=== PATIENT | female | born 1965 | race Caucasian/White ===

== ENCOUNTER 2018-06-17 17:46 | Emergency (ER) | payer BC ==
[2018-06-17 18:00] VITALS: BP 156/83
--- NOTE | 2018-06-17 18:25 | EDM.PDOC ---
ED HPI GENERAL MEDICAL PROBLEM - General Chief Complaint: Head Injury Stated Complaint: HEAD INJURY Time Seen by Provider: 06/17/18 18:18 Source of Information: Reports: Patient, Family (daughter) History Limitations: Reports: No Limitations - History of Present Illness INITIAL COMMENTS - FREE TEXT/NARRATIVE: 53-year-old female states that her dog became entangled under her feet in her home and she was sitting on a new bar stool. States the legs are very narrow and a barstool tipped over and she fell directly to a linoleum covered with floor. She hit her head very hard on the supple aspect. Dazed but did not lose consciousness. She had mild nausea and has a headache. She also has diffuse cervical neck pain. She's had previous C4-C7 spinous fusion procedure many years ago. Another pain is in her upper lumbar spine. She has contused her elbows and forearm with no evidence of bony injury identified. Onset: Today Onset Date: 06/17/18 Onset Time: 17:00 Duration: Minutes: Location: Reports: Head, Neck, Back Quality: Reports: Ache, Throbbing Severity: Moderate (Large hematoma occipital scalp.) Improves with: Reports: Rest Worsens with: Reports: Movement Context: Reports: Trauma (Fell off a barstool and landed hard on the back of her head injuring her neck and her lower back as well. No loss of consciousness. ). Denies: Activity, Exercise, Lifting, Sick Contact Associated Symptoms: Reports: Headaches, Nausea/Vomiting. 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 ( took 600 mg of Motrin before coming to the ED.) Posterior Head Pain Score (Numeric/FACES): 10 - Related Data Allergies Allergy/AdvReac Type Severity Reaction Status Date / Time No Known Allergies Allergy Verified 06/17/18 18:00 Home Meds: Home Meds oxyCODONE HCl/Acetaminophen [Percocet 5-325 mg Tablet] 1 - 2 each PO Q4H PRN # 12 tablet 06/17/18 [Rx] Past Medical History Neurological History: Reports: Migraines Hematologic History: Reports: Other (See Below) Dermatologic History: Reports: Other (See Below) Other Dermatologic History: acne - Past Surgical History HEENT Surgical History: Reports: Tonsillectomy Female Surgical History: Reports: D&C Neurological Surgical History: Reports: C-Spine Social & Family History - Tobacco Use Smoking Status *Q: Current Every Day Smoker Years of Tobacco use: 30 Packs/Tins Daily: 0.5 - Caffeine Use Caffeine Use: Reports: Coffee - Recreational Drug Use Recreational Drug Use: No - Living Situation & Occupation Living situation: Reports: , with Family Occupation: Employed ED ROS GENERAL - Review of Systems Review Of Systems: See Below Constitutional: Denies: Fever, Chills, Malaise, Weakness, Fatigue, Weight Loss HEENT: Reports: No Symptoms Respiratory: Reports: No Symptoms Cardiovascular: Reports: No Symptoms Endocrine: Reports: No Symptoms GI/Abdominal: Reports: No Symptoms : Reports: No Symptoms Musculoskeletal: Reports: Neck Pain (Acid C4-C7 is), Back Pain (Upper lumbar back pain) Skin: Reports: No Symptoms ( cervical spine fusion) Neurological: Reports: Dizziness, Headache Psychiatric: Reports: No Symptoms ED EXAM, HEAD INJURY - Physical Exam Exam: See Below Exam Limited By: No Limitations General Appearance: Alert, WD/WN, No Apparent Distress Head: Scalp Hematoma, Scalp Tenderness (Patient has a large 6-7 cm circumferential scalp hematoma over the upper occipital scalp that is very tender to touch.) Nexus Criteria: Posterior, Midline Cervical Tenderness (Very tender left lateral spinous processes.). No: Altered Level of Consciousness, Painful Distraction Injuries Eyes: Bilateral Eye: Normal Inspection, PERRL Ears: Normal TMs Throat/Mouth: Other (No dental or tongue injury.) Neck: Muscle Spasm, Paraspinous Muscle Tender (Left side), Tender Lateral (Left paraspinal muscle spasm), Other (Well-healed midline ) Respiratory: No Respiratory Distress, Lungs Clear, Normal Breath Sounds, No Accessory Muscle Use, Chest Non-Tender, Other (No pain on palpation of his ribs. ) Cardiovascular: Normal Peripheral Pulses, Regular Rate, Rhythm, No Edema, No Gallop, No Murmur, No Rub Back Exam: Other (Tenderness to palpation over the spinous processes of L1-2 and 3 and a little bit to the left lower back. There is mild paraspinal muscle spasm in this area as well. No abrasions or contusions are identified on the examination of thoracic and lumbar spine.) Extremities: Other (She has contused both forearms and particularly her left elbow. She has some pain with pronation supination. His contused her right ) Neurologic: spinner open end II-XII nml As Tested (forearm but this appears to be muscular and extensor surface with full pronation supination and no evidence of bony injury.), No Motor/Sensory Deficits, Alert, Normal Mood/Affect, Oriented x 3 Skin: Normal Color, Warm/Dry - Stuart Coma Score Best Eye Response (Alannah): (4) Open Spontaneously Best Verbal Response (Alannah): (5) Oriented Best Motor Response (Alannah): (6) Obeys Commands Stuart Total: 15 Course - Vital Signs Last Recorded V/S: Last Vital Signs Temp 36.3 C 06/17/18 17:57 Pulse 78 06/17/18 17:57 Resp 16 06/17/18 17:57 BP 156/83 H 06/17/18 17:57 Pulse Ox 97 06/17/18 17:57 - Orders/Labs/Meds Orders: Active Orders 24 hr Category Date Time Status Cervical Spine wo Cont [CT] Stat Exams 06/17/18 18:20 Taken Head wo Cont [CT] Stat Exams 06/17/18 18:19 Taken Lumbar Spine wo Cont [CT] Stat Exams 06/17/18 18:21 Taken - Radiology Interpretation Free Text/Narrative:: 52-year-old female attends the ED after falling off a barstool at her home. 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 She states she tipped over backwards and landed hard on the floor injuring her supple scalp in her neck. She also finds that she has pain in her lower back as well. She's had previous cervical spine fusion from C4-C7 5 years ago. She has a large hematoma to the left occipital scalp. Injury occurred about an hour prior to coming to the ED. Plan CT head CT cervical spine CT lumbar spine. She also injured both forearms from hitting the floor on the right side appears to be more muscular contusion to the extensor surface of the mid forearm. On the left she has more pain on the elbow. And in the wrist. Therefore an x-ray of her left forearm to be done. - Re-Assessments/Exams Free Text/Narrative Re-Assessment/Exam: 06/17/18 19:OO; CT of the head reveals no intracranial bleeding or mass effect. There is no skull fracture. CT cervical spine reveals that she has a fusion from C4-C7 with the hardware in good position and no signs of FRACTURES in the underlying bones. CT of the lumbar spine reveals no fractures. 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 X-ray of the left forearm reveals no bony injuries. Soft tissue contusion to the muscle has occurred. Patient be discharged to home with rest ice pack to the head and neck. Percocet tabs 5/325 one or 2 every 4-6 hours needed for pain relief 12 tablets provided. She will use Motrin 600 mg every 6 hours after this for pain relief. He is to expect much more increased and stiffness and soreness in the lumbar Departure - Departure Time of Disposition: 19:13 Disposition: Home, Self-Care 01 Condition: Fair Clinical Impression: Closed head injury without concussion Qualifiers: Encounter type: initial encounter Qualified Code(s): S09.90XA - Unspecified injury of head, initial encounter Sprain of cervical neck Qualifiers: Encounter type: initial encounter Qualified Code(s): S13.9XXA - Sprain of joints and ligaments of unspecified parts of neck, initial encounter Contusion of lower back Qualifiers: Encounter type: initial encounter Qualified Code(s): S30.0XXA - Contusion of lower back and pelvis, initial encounter Contusion of occipital region of scalp Qualifiers: Encounter type: initial encounter Qualified Code(s): S00.03XA - Contusion of scalp, initial encounter - Discharge Information *PRESCRIPTION DRUG MONITORING PROGRAM REVIEWED*: Not Applicable *COPY OF PRESCRIPTION DRUG MONITORING REPORT IN PATIENT ROSA: Not Applicable Prescriptions: oxyCODONE HCl/Acetaminophen [Percocet 5-325 mg Tablet] 1 - 2 each PO Q4H PRN # 12 tablet PRN Reason: pain relief. Referrals: PCP,None [Primary Care Provider] - Forms: ED Department Discharge Additional Instructions: Evaluation in the emergency room today in regards to fall from bar stool at home with blunt force trauma to the occipital lower back of your head. His resulted in hematoma which is a collection of blood between the skin and the 5 layers of the scalp. CT scan of the brain reveals no intracranial bleeding mass effect or skull fracture. You also resulted in a cervical neck sprain. Previous surgery done on the C-spine reveals the hardware to be in good position from C4- C7 spinous fusion. No fractures are identified. CT of the lumbar spine reveal no fractures. 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 This is of no consequence and will not cause any problems in the long-term. It does not appear that you have suffered a significant concussion. Suggest rest for the next couple of days. Small meal tonight. Expect increased stiffness and soreness in her neck and lower back over the next 24-48 hours. May use Percocet tablets 5/325 mg one or 2 every 4-6 hours for the next day or 2 as the neck is likely going to become much more stiff and sore over the next 48-72 hours. May continue to use Advil 600 mg every 6 hours as necessary for relief of pain after this. Ice pack to her neck for one half hour out of every 4 hours today and tomorrow may be useful as well in reducing muscle spasm. Follow-up with personal care physician of any further problems occur. - My Orders Last 24 Hours: My Active Orders 06/17/18 18:19 Head wo Cont [CT] Stat 06/17/18 18:20 Cervical Spine wo Cont [CT] Stat 06/17/18 18:21 Lumbar Spine wo Cont [CT] Stat - Assessment/Plan Last 24 Hours: My Active Orders 06/17/18 18:19 Head wo Cont [CT] Stat 06/17/18 18:20 Cervical Spine wo Cont [CT] Stat 06/17/18 18:21 Lumbar Spine wo Cont [CT] Stat
--- NOTE | 2018-06-18 20:18 | CR ---
Left forearm: Two views of the left forearm were obtained. Comparison: No prior forearm study. Mild soft tissue swelling is identified. No fracture, dislocation or other bony abnormality is seen. Impression: 1. Soft tissue swelling. No bony abnormality is identified on left forearm study. Diagnostic code #2
--- NOTE | 2018-06-18 20:19 | CT ---
CT cervical spine Technique: Multiple axial sections were obtained from above C1 inferiorly to the top of T2. Reconstructed sagittal and coronal images were reviewed. Comparison: No prior cervical spine imaging. Findings: Fusion is identified between the vertebral bodies of C5 and C6. Posterior hardware is also noted at C5-C6 as well as affixing the C6-C7 posterior levels. Anterior osteophytes are seen at C2-C3 and C3-C4. Calcifications are seen within the anterior annulus at both these levels. Posterior spurring is noted at C5-C6. No fracture is identified. No bony central or bony neural foraminal stenosis is seen. Small portion of the visualized lung apices are clear. No abnormal subluxation is seen on the reconstructed sagittal images. Impression: 1. Mild degenerative change and previous cervical spine surgery. 2. Nothing acute is seen on CT study of the cervical spine. Diagnostic code #2 I agree with preliminary report issued by [facility] ([facility] report finalized on 06/17/18, 7:57 PM Central Time.
--- NOTE | 2018-06-18 20:19 | CT ---
Head CT Technique: Multiple axial sections through the brain were obtained. Intravenous contrast was not utilized. Comparison: Prior head CT study of 10/18/15. Findings: Ventricles along with basal cisterns and sulci over the convexities are within normal limits for the patient's age. No abnormal parenchymal densities are seen. No evidence of intracranial hemorrhage. No midline shift or mass effect is seen. Bone window settings were reviewed which show no acute calvarial abnormality. Soft tissue swelling is seen within the posterior left scalp. Impression: 1. Soft tissue swelling. No acute intracranial abnormality is identified. No skull fracture is seen. Diagnostic code #2 I agree with preliminary report issued by [facility] ([facility] report finalized on 06/17/18, 7:54 PM Central Time.)
--- NOTE | 2018-06-18 20:19 | CT ---
CT lumbar spine Technique: Multiple axial sections were obtained from the lower T11 vertebral body inferiorly through the L5-S1 disc. Reconstructed sagittal and coronal images were reviewed. Comparison: No prior lumbar spine imaging. Findings: T11-T12: Posterior disc is preserved. No central canal stenosis or neural foraminal stenosis is seen. T12-L1: Posterior disc is preserved. No central canal stenosis or neural foraminal stenosis is seen. Mild degenerative apophyseal change is seen. L1-L2: Posterior disc is preserved. No central canal stenosis or neural foraminal stenosis is seen. Minimal degenerative apophyseal change is seen. L2-L3: Slight vacuum phenomena is seen within the disc. Minimal circumferential disc bulge is seen with posterior disc maintaining a concave margin. Minimal degenerative apophyseal change is seen. No central canal stenosis or neural foraminal stenosis is seen. L3-L4: Slight circumferential disc bulge is seen. Posterior disc maintains a mostly planar margin. No central canal stenosis or neural foraminal stenosis is seen. Minimal degenerative apophyseal change is seen. L4-L5: Posterior disc shows minimal bulge. No central canal stenosis or neural foraminal stenosis is seen. L5-S1: Pseudoarticulation is noted within the right transverse process to the sacrum compatible with partial transitional segment. Posterior disc is preserved. No central canal stenosis or neural foraminal stenosis is seen. No fracture is seen. No abnormal subluxation is seen. Slight anterior osteophytes are seen at L2-L3 and L3-L4. Impression: 1. Mild degenerative change as noted above. Partial transitional segment at the lumbosacral junction on the right side. 2. Nothing acute is appreciated. Diagnostic code #2 I agree with preliminary report issued by [facility] ([facility] report finalized on 06/17/18, 7:55 PM Central Time)
== END 2018-06-17 19:49 | disposition home or self-care (01) ==
LOC: JD.ED 17:46
DX: S13.9XXA Sprain of joints and ligaments of unspecified parts of neck, initial encounter (principal); S00.03XA Contusion of scalp, initial encounter; S30.0XXA Contusion of lower back and pelvis, initial encounter; R40.2410 Glasgow coma scale score 13-15, unspecified time; F17.210 Nicotine dependence, cigarettes, uncomplicated; W17.89XA Other fall from one level to another, initial encounter
CPT/HCPCS: 70450; 70450-26; 72125; 72125-26; 72131; 72131-26; 73090-26-LT; 73090-LT; 99283; 99284-25

== ENCOUNTER 2019-10-12 21:46 | Emergency (ER) | payer BC ==
[2019-10-12 21:58] VITALS: BP 179/81; PULSE 96
[2019-10-12] MEDS ORDERED: Sodium Chloride 0.9% 1,000 ML IV SCH (22:45)
--- NOTE | 2019-10-12 22:48 | EDM.PDOC ---
ED HPI GENERAL MEDICAL PROBLEM - General Chief Complaint: Abdominal Pain Stated Complaint: ABDOMINAL PAIN Time Seen by Provider: 10/12/19 22:01 Source of Information: Reports: Patient History Limitations: Reports: No Limitations - History of Present Illness INITIAL COMMENTS - FREE TEXT/NARRATIVE: Ms. Rojo is a very pleasant 54-year-old woman with no chronic medical problems, who now presents to the ED stating that she had watery diarrhea yesterday, but soft bowel movements today, however, she woke up around 03:30 to 04:00 this morning with suprapubic pain. She is unable to describe the character of the pain. It does not radiate. No associated symptoms such as fever, nausea, vomiting, constipation, or urinary symptoms. No prior similar symptoms. She states that she took 800 mg of ibuprofen around 04:30 to 05:00, then again around 10:00, and again arounf 20:45, each time giving her significant improvement in her symptoms. At present, she states that she is nearly asymptomatic. The patient states that she was started on cefdinir for a dental infection this past 10/06/2019. Her last dose was this morning. Here in the ED, the patient's initial BP is found to be elevated at 179/81, otherwise, she is hemodynamically stable, afebrile, saturating 98% on room air. Other than yesterday's diarrhea, today's suprapubic abdominal pain, and her recent dental infection, the patient denies having a recent fever, chills, sore throat, ear pain, nasal or sinus congestion, cough, dyspnea, chest pain, palpitations, nausea, vomiting, constipation, urinary symptoms, recent weight gain or weight loss, recent bloody bowel movements or black bowel movements, recent joint aches, headaches, or rashes. The patient does not have a PCP. Her gynecology midlevel is LORIE Pringle, at [facility]. Middle Abdominal Pain Score (Numeric/FACES): 6 - Related Data Allergies Allergy/AdvReac Type Severity Reaction Status Date / Time No Known Allergies Allergy Verified 10/12/19 21:58 Home Meds: Home Meds Cefdinir 300 mg PO BID 10/12/19 [History] levoFLOXacin [Levaquin] 1 tab PO QPM #7 tab 10/13/19 [Rx] metroNIDAZOLE [Flagyl] 1 tab PO Q8H #21 tab 10/13/19 [Rx] Past Medical History - Past Surgical History HEENT Surgical History: Reports: Adenoidectomy, Oral Surgery (wisdom teeth extraction), Tonsillectomy Female Surgical History: Reports: D&C (x 1) Neurological Surgical History: Reports: C-Spine (C5-C7 PCDF) Social & Family History - Family History Family Medical History: Noncontributory - Tobacco Use Smoking Status *Q: Current Every Day Smoker Years of Tobacco use: 37 Packs/Tins Daily: 1 - Caffeine Use Caffeine Use: Reports: Coffee, Soda - Alcohol Use Alcohol Use History: Yes Alcohol Use Frequency: Rarely - Recreational Drug Use Recreational Drug Use: No - Living Situation & Occupation Living situation: Reports: , with Family (Daughter) 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 ED EXAM, GI/ABD - Physical Exam Exam: See Below Exam Limited By: No Limitations General Appearance: Alert, WD/WN, No Apparent Distress Eyes: Bilateral: Normal Appearance, EOMI Ears: Normal External Exam, Hearing Grossly Normal Nose: Normal Inspection Throat/Mouth: Normal Inspection, Normal Lips, Normal Voice, No Airway Compromise Head: Atraumatic, Normocephalic Neck: Normal Inspection, Full Range of Motion Respiratory/Chest: No Respiratory Distress, Lungs Clear, Normal Breath Sounds, No Accessory Muscle Use Cardiovascular: Normal Peripheral Pulses, Regular Rate, Rhythm, No Edema, No Gallop, No JVD, No Murmur, No Rub GI/Abdominal Exam: Normal Bowel Sounds (active), Soft, No Organomegaly, No Distention, No Abnormal Bruit, No Mass, Tender (Lower abdomen, particularly suprapubically. Nontender to the upper abdomen.) (Female) Exam: Deferred Rectal (Female) Exam: Deferred Back Exam: Normal Inspection, Full Range of Motion, NT Extremities: Normal Inspection, Normal Range of Motion, No Pedal Edema, Normal Capillary Refill Neurological: Alert, Oriented, Normal Cognition, No Motor/Sensory Deficits Psychiatric: Normal Affect Skin Exam: Warm, Dry, Intact, Normal Color, No Rash Course - Vital Signs Last Recorded V/S: Last Vital Signs Temp 37.6 C 10/12/19 21:54 Pulse 96 08/13/20 21:54 Resp 20 10/12/19 21:54 BP 179/81 H 10/12/19 21:54 Pulse Ox 98 10/12/19 21:54 - Orders/Labs/Meds Orders: Active Orders 24 hr Category Date Time Status Abdomen Pelvis w Cont [CT] Stat Exams 10/12/19 22:41 Taken Sodium Chloride 0.9% [Normal Saline] 1,000 ml Med 10/12/19 22:45 Active IV ASDIRECTED Medication Orders Sodium Chloride (Normal Saline) 1,000 mls @ 150 mls/hr IV ASDIRECTED MARIO Last Admin: 10/12/19 22:54 Dose: 150 mls/hr Documented by: PARISH Labs: Laboratory Tests 10/12/19 10/12/19 10/12/19 Range/Units 22:55 22:55 23:33 WBC 12.39 H (3.98-10.04) K/mm3 RBC 4.57 (3.98-5.22) M/mm3 Hgb 13.3 (11.2-15.7) gm/dl Hct 41.0 (34.1-44.9) % MCV 89.7 (79.4-94.8) fl MCH 29.1 (25.6-32.2) pg MCHC 32.4 (32.2-35.5) g/dl RDW Std Deviation 43.1 (36.4-46.3) fL Plt Count 277 (182-369) K/mm3 MPV 9.5 (9.4-12.3) fl Neutrophils % (Manual) 69 H (40-60) % Band Neutrophils % 2 (0-10) % Lymphocytes % (Manual) 20 (20-40) % Atypical Lymphs % 0 % Monocytes % (Manual) 9 (2-10) % Eosinophils % (Manual) 0 L (0.7-5.8) % Basophils % (Manual) 0 L (0.1-1.2) Platelet Estimate Adequate RBC Morph Comment Normal Sodium 137 (136-145) mEq/L Potassium 3.2 L (3.5-5.1) mEq/L Chloride 103 (98-107) mEq/L Carbon Dioxide 23 (21-32) mEq/L Anion Gap 14.2 (5-15) BUN 10 (7-18) mg/dL Creatinine 0.8 (0.55-1.02) mg/dL Est Cr Clr Drug Dosing 75.26 mL/min Estimated GFR (MDRD) > 60 (>60) mL/min BUN/Creatinine Ratio 12.5 L (14-18) Glucose 102 (74-106) mg/dL Calcium 8.6 (8.5-10.1) mg/dL Total Bilirubin 0.3 (0.2-1.0) mg/dL AST 13 L (15-37) U/L ALT 15 (14-59) U/L Alkaline Phosphatase 35 L (46-116) U/L Total Protein 6.9 (6.4-8.2) g/dl Albumin 3.3 L (3.4-5.0) g/dl Globulin 3.6 gm/dL Albumin/Globulin Ratio 0.9 L (1-2) Urine Color Yellow (Yellow) Urine Appearance Clear (Clear) Urine pH 6.0 (5.0-8.0) Ur Specific Fletcher 1.015 (1.005-1.030) Urine Protein Negative (Negative) Urine Glucose (UA) Negative (Negative) Urine Ketones Negative (Negative) Urine Occult Blood 2+ H (Negative) Urine Nitrite Negative (Negative) Urine Bilirubin Negative (Negative) Urine Urobilinogen 0.2 (0.2-1.0) Ur Leukocyte Esterase Negative (Negative) Urine RBC 0-5 (0-5) /hpf Urine WBC 0-5 (0-5) /hpf Ur Squamous Epith Cells 0-5 (0-5) /hpf Urine Bacteria Few (FEW) /hpf Urine Mucus Not seen (FEW) /hpf Meds: Medications Generic Name Dose Route Start Last Admin Trade Name Freq PRN Reason Stop Dose Admin Sodium Chloride 1,000 mls @ 150 mls/hr 10/12/19 22:45 10/12/19 22:54 Normal Saline IV 150 mls/hr ASDIRECTED MARIO Administration Discontinued Medications Generic Name Dose Route Start Last Admin Trade Name Freq PRN Reason Stop Dose Admin Diatrizoate Meglum/Diatrizoate Sod 90 ml 10/12/19 23:49 Gastrografin 37% PO 10/12/19 23:50 ONETIME ONE Iopamidol 100 ml 10/12/19 23:49 Isovue-300 (61%) IVPUSH 10/12/19 23:50 ONETIME ONE Levofloxacin 750 mg 10/13/19 00:43 Levaquin PO 10/13/19 00:44 ONETIME STA Metronidazole 500 mg 10/13/19 00:44 Flagyl PO 10/13/19 00:45 ONETIME STA Potassium Chloride 40 meq 10/13/19 00:43 Klor-Con M20 PO 10/13/19 00:44 ONETIME ONE - Re-Assessments/Exams Free Text/Narrative Re-Assessment/Exam: 10/12/19 22:44 As above, the patient had watery diarrhea, but soft stools today, and suprapubic pain that developed earlier this morning, nearly completely relieved for several hours with ibuprofen. No urinary symptoms, no nausea or vomiting, and no recent fever. On examination, she has reproducible tenderness to her lower abdomen, particularly in the suprapubic region, but no tenderness to the upper abdomen, and her bowel sounds are active. CVA tenderness. I have ordered a work-up that includes a CBC, CMP, urinalysis, and a CT scan of her abdomen and pelvis with oral and IV contrast. In the meantime, the patient will be given IV fluid. She declined an offer for pain medication and anti-nausea medicine. 10/12/19 23:58 The patient's CBC is remarkable for a WBC count modestly elevated at 12.39, but with only 2% bandemia. The remainder of her CBC is unremarkable. Her CMP is remarkable for a potassium mildly depressed at 3.2, with the remainder of her CMP being unremarkable. Her urinalysis is remarkable for 2+ occult blood with 0-5 RBCs, and is otherwise unremarkable. 10/13/19 00:40 CT of the abdomen and pelvis with oral and IV contrast is read by Melody as "Acute sigmoid diverticulitis without evidence for abscess or bowel obstruction." Based on the above, I will order 40 mEq of oral KCl, 750 mg of oral levofloxacin, and 500 mg of oral metronidazole. 10/13/19 00:52 Test results discussed with the patient. As above, she has uncomplicated acute diverticulitis. She does not need to be admitted to the hospital; I will prescribe a 7-day course of levofloxacin and metronidazole, and she can continue to take [id number] ibuprofen as needed for discomfort, since it appears to be working well for her. I will recommend that she eat a low fiber diet for the next 2 or 3 days, until she is feeling better, after which she can eat a regular diet. In the long-term, I would like her to eat a high-fiber diet. I will also refer her to the clinic, since that she should undergo a colonoscopy in about 6 weeks. Departure - Departure Time of Disposition: 00:54 Disposition: Home, Self-Care 01 Condition: Good Clinical Impression: Acute diverticulitis - Discharge Information *PRESCRIPTION DRUG MONITORING PROGRAM REVIEWED*: Not Applicable *COPY OF PRESCRIPTION DRUG MONITORING REPORT IN PATIENT ROSA: Not Applicable Referrals: Joycelyn Perry PA-C [Ordering Only Provider] - Anitra Nunes PA-C [Physician [employer]ige Goods Examiner] - Forms: ED Department Discharge Additional Instructions: You were seen in the emergency room after developing lower midline abdominal pain early this morning. Work-up in the ER included blood work, a urinalysis, and a CT scan of your abdomen and pelvis with oral and IV contrast. Your work-up found that you are suffering from acute sigmoid diverticulitis = an infection of some pockets in your descending colon. You have been started on the antibiotics levofloxacin (Levaquin) and met ronidazole (Flagyl), and prescriptions for levofloxacin and metronidazole have been sent to the [facility], located just south and across the [address] from [facility]. Take 1 tablet of levofloxacin every evening, starting this evening, 10/13/2019, as prescribed. Take 1 tablet of metronidazole every 8 hours, starting at 9:00 this morning, 10/13/2019, as prescribed. Finish both the biotics unless told otherwise by your doctor. We recommend that you discontinue the cefdinir that you are currently on for your dental infection. You may take [id number] ibuprofen, 3 tablets (600 mg) up to every 8 hours, with food, as needed for discomfort. We recommend that you eat a low fiber/low residue diet for the next 2 to 3 days, until you are feeling better, after which you can resume your usual diet. Stay adequately hydrated. We recommend that you follow-up with LORIE Stallings, or one of the other providers in the clinic, to establish a PCP, as current guidelines recommend that you undergo a colonoscopy in about 6 weeks. If any other problems, please do not hesitate to return to the ER. Sepsis Event Note (ED) - Evaluation Sepsis Screening Result: No Definite Risk - Focused Exam Vital Signs: Vital Signs Temp Pulse Resp BP Pulse Ox 10/12/19 21:54 37.6 C 96 20 179/81 H 98 - My Orders Last 24 Hours: My Active Orders 10/12/19 22:41 Abdomen Pelvis w Cont [CT] Stat 10/12/19 22:45 Sodium Chloride 0.9% [Normal Saline] 1,000 ml IV ASDIRECTED - Assessment/Plan Last 24 Hours: My Active Orders 10/12/19 22:41 Abdomen Pelvis w Cont [CT] Stat 10/12/19 22:45 Sodium Chloride 0.9% [Normal Saline] 1,000 ml IV ASDIRECTED
[2019-10-12] MEDS ORDERED: Diatrizoate Meglumine/Diatrizoate Sodium 37% 120 ML Bottle PO ONE (23:49)
[2019-10-12] MEDS ORDERED: Iopamidol 612 MG/ML 100 ML Bottle IVPUSH ONE (23:49)
[2019-10-13] MEDS ORDERED: Potassium Chloride 20 MEQ Tab.ER PO ONE (00:43)
[2019-10-13] MEDS ORDERED: Levofloxacin 750 MG Tab PO STA (00:43)
[2019-10-13] MEDS ORDERED: metroNIDAZOLE 500 MG Tab PO STA (00:44)
--- NOTE | 2019-10-13 06:43 | CT ---
CT abdomen and pelvis Technique: Multiple axial sections were obtained from above the dome of the diaphragm inferiorly through the pubic symphysis. Intravenous and oral contrast was utilized. Delayed images were also obtained from above the iliac crests inferiorly through the pubic symphysis. Reconstructed coronal and sagittal images were obtained. Comparison: No prior abdominal imaging is available. Findings: Visualized lung bases show nothing acute. Liver contains no focal parenchymal abnormality. Spleen appears within normal limits. Kidneys show symmetric contrast enhancement without hydronephrosis or mass. Pancreas appears within normal limits. Gallbladder contains no calcified gallstones. Aorta shows atherosclerotic calcification which continues into the iliac vessels. No aneurysm is seen. No retroperitoneal adenopathy or mesenteric abnormalities are seen. Appendix is seen and is normal. Numerous diverticuli are seen within the descending and sigmoid regions. Mild inflammatory change is noted around the sigmoid colon compatible with mild diverticulitis. No fluid collections of abscess are seen at this time. Delayed images shows contrast within both distal ureters and within the bladder. Bone window settings were reviewed which shows no acute osseous finding. Mild scattered degenerative change is seen within the spine. Impression: 1. Findings compatible with mild sigmoid diverticulitis. 2. Other nonacute findings as noted above. Diagnostic code #3 Agree with preliminary report issued by [email or web address] ([facility] preliminary report dictated on 10/13/19, 1:37 AM Central Daylight Time) Study was dictated in MDT
== END 2019-10-13 01:13 | disposition home or self-care (01) ==
LOC: JD.ED 21:46
DX: K57.32 Diverticulitis of large intestine without perforation or abscess without bleeding (principal); F17.210 Nicotine dependence, cigarettes, uncomplicated
CPT/HCPCS: 36415; 74177; 80053; 81001; 85007; 85027; 99284; A9270; J7030; Q9963

== ENCOUNTER 2019-11-30 06:52 | Day surgery (SDC) | payer BC ==
[2019-11-30] MEDS ORDERED: Lactated Ringers 1,000 ML IV SCH (07:00)
[2019-11-30] MEDS ORDERED: Lidocaine 1%/Sod Bicarbonate in NS 8.4% 1 ML Syringe IDERM PRN (07:00)
[2019-11-30] MEDS ORDERED: Sodium Chloride 0.9% 10 ML Syringe FLUSH PRN (07:00)
[2019-11-30] MEDS ORDERED: Propofol 200 MG/20 ML SDV ONE ×2 (07:12→08:04)
[2019-11-30] MEDS ORDERED: Lidocaine 1% 4 ML ONE (07:12)
--- NOTE | 2019-11-30 07:26 | PCM.PREANE ---
Preanesthetic Assessment - Anesthesia/Transfusion/Family Hx Anesthesia History: Prior Anesthesia Without Reaction Family History of Anesthesia Reaction: No Transfusion History: No Prior Transfusion(s) - Review of Systems General: No Symptoms Pulmonary: No Symptoms Cardiovascular: No Symptoms Gastrointestinal: No Symptoms Neurological: No Symptoms Other: Reports: None - Physical Assessment NPO Status Date: 11/29/19 NPO Status Time: 20:30 ASA Class: 2 Mental Status: Alert & Oriented x3 Airway Class: Mallampati = 2 Dentition: Reports: Normal Dentition Thyro-Mental Finger Breadths: 3 Mouth Opening Finger Breadths: 3 ROM/Head Extension: Full Lungs: Clear to Auscultation, Normal Respiratory Effort Cardiovascular: Regular Rate, Regular Rhythm - Allergies Allergies/Adverse Reactions: Allergies Allergy/AdvReac Type Severity Reaction Status Date / Time No Known Allergies Allergy Verified 11/29/19 15:42 - Acknowledgements Anesthesia Type Planned: MAC Pt an Appropriate Candidate for the Planned Anesthesia: Yes Alternatives and Risks of Anesthesia Discussed w Pt/Guardian: Yes Pt/Guardian Understands and Agrees with Anesthesia Plan: Yes PreAnesthesia Questionnaire HEENT History: Reports: Impaired Vision, Other (See Below) Other HEENT History: glasses Cardiovascular History: Reports: None Respiratory History: Reports: None Gastrointestinal History: Reports: None Genitourinary History: Reports: None SEC REPORTING CONSULTANT History: Reports: None Musculoskeletal History: Reports: None Neurological History: Reports: Migraines Psychiatric History: Reports: None Endocrine/Metabolic History: Reports: None Hematologic History: Reports: None Immunologic History: Reports: None Oncologic (Cancer) History: Reports: None Dermatologic History: Reports: Other (See Below) Other Dermatologic History: acne - Past Surgical History Head Surgeries/Procedures: Reports: None HEENT Surgical History: Reports: Adenoidectomy, Oral Surgery, Tonsillectomy Cardiovascular Surgical History: Reports: None Respiratory Surgical History: Reports: None GI Surgical History: Reports: None Female Surgical History: Reports: D&C Male Surgical History: Reports: None Endocrine Surgical History: Reports: None Neurological Surgical History: Reports: C-Spine (C5-7, FROM without pain) Musculoskeletal Surgical History: Reports: None Oncologic Surgical History: Reports: None - SUBSTANCE USE Smoking Status *Q: Current Every Day Smoker Recreational Drug Use History: No - HOME MEDS Home Medications: Home Meds L Acidophil/B Lactis/B Longum [Florajen3] 460 mg PO DAILY 11/29/19 [History] - CURRENT (IN HOUSE) MEDS Current Meds: Current Medications Lactated Ringer's (Ringers, Lactated) 1,000 mls @ 125 mls/hr IV ASDIRECTED MARIO Stop: 11/30/19 23:00 Lidocaine/Sodium Bicarbonate (Buffered Lidocaine 1% In Ns 8.4%) 0.25 ml IDERM ONETIME PRN PRN Reason: Prior to IV Start Stop: 11/30/19 18:00 Sodium Chloride (Saline Flush) 10 ml FLUSH ASDIRECTED PRN PRN Reason: Keep Vein Open Stop: 11/30/19 18:00 Discontinued Medications Lidocaine HCl (Xylocaine-Mpf 1%) Confirm Administered Dose 4 mls @ as directed .ROUTE .STK-MED ONE Stop: 11/30/19 07:13 Propofol (Diprivan 20 Ml) Confirm Administered Dose 200 mg .ROUTE .STK-MED ONE Stop: 11/30/19 07:13
--- NOTE | 2019-11-30 08:42 | PCM48HPAN ---
Post Anesthesia Note - EVALUATION WITHIN 48HRS OF ANESTHETIC Vital Signs in Normal Range: Yes Patient Participated in Evaluation: Yes Respiratory Function Stable: Yes Airway Patent: Yes Cardiovascular Function Stable: Yes Hydration Status Stable: Yes Pain Control Satisfactory: Yes Nausea and Vomiting Control Satisfactory: Yes Mental Status Recovered: Yes Vital Signs: Last Vital Signs Temp 36.2 C 11/30/19 07:05 Pulse 68 11/30/19 07:05 Resp 16 11/30/19 07:05 BP 101/59 L 11/30/19 07:05 Pulse Ox 96 11/30/19 07:05
[2019-11-30 08:55] VITALS: BP 95/48; PULSE 72
--- NOTE | 2019-11-30 12:53 | PCM.PRNOTE ---
- Free Text/Narrative Note: Date: 11/30/2019 Procedure: diagnostic colonoscopy Indication: recent initial bout of uncomplicated diverticulitis, no prior colonoscopy Endoscopist: Humble Leary MD Findings: Cecum reached with colonoscope. Extensive diverticular disease. Poor prep. Detailed Report: The patient was taken to the endoscopy suite and placed in left lateral decubitus position. Time out was performed and monitored anesthesia care was initiated. Visual inspection of the anus revealed minor external hemorrhoidal skin tags anteriorly. Digital rectal exam was unremarkable. The lubricated colonoscope was then inserted and advanced all the way to the cecum. The ileocecal valve and appendiceal orifice were visualized. The prep was not very good. On slow withdrawal of the scope, mucosal surfaces were carefully inspected. There was extensive diverticular disease, most severe in the sigmoid colon, without evidence of active inflammation. Small diminutive polyps in the superior portion of the rectum were seen but not biopsied due to difficulty maintaining proper insufflation despite attempting various maneuvers. These polyps appeared grossly consistent with hyperplastic polyps. No biopsies were obtained. On retroflexion within the rectum no abnormalities were noted. Air was suctioned prior to removal of the scope. No evidence of a large polyp or colon cancer was evident, though there was not a good enough inspection of the mucosa throughout in order to pule out small polyps due to the quality of the prep. I therefore recommended the patient repeat a colonoscopy in three years. The patient tolerated the procedure well.
== END 2019-11-30 09:15 | disposition home or self-care (01) ==
LOC: JD.SDS 06:52
PROVIDERS: ATTEND Surgery
DX: K57.30 Diverticulosis of large intestine without perforation or abscess without bleeding (principal); F17.210 Nicotine dependence, cigarettes, uncomplicated
CPT/HCPCS: 45378; J2001; J2704; J7120; 00811